=== PATIENT | male | born 1940 | race Caucasian/White ===

== ENCOUNTER 2023-11-06 10:27 | Emergency (ER) | payer MEDICARE, OTHER ==
[~2023-11-06] VITALS: Ht 175.3 cm; Wt 77.3 kg
[~2023-11-06 10:27] MED LIST: ASPIRIN 81M81 MG/TA2 PO; CARDIZEM CD 12120 MG PO; CIPRO 500MG TA500 MG PO; FLAGYL500 MG; HCTZ 25MG TAB25 MG PO; HCTZ12.5TAB PO; MOBIC 7.5MG7.5 MG PO; NORCO 325 MG-51 TAB PO; PHENERGAN25 MG
[2023-11-06 10:37] VITALS: TEMP 99.1
[2023-11-06] MEDS ORDERED: NS 500 ML IV ONE (11:15)
[2023-11-06] MEDS ORDERED: Acetaminophen 500 MG TAB PO ONE (11:15)
[2023-11-06 11:57] LABS: BASO % 0.2 % (0.0-2.0); GRAN # 7.4 K/mm3 (1.4-6.5); GRAN % 82.9 % (42.2-75.2); HEMOGLOBIN 12.8 g/dl (13.5-18.0); LYMPH # 0.5 K/mm3 (1.2-3.4); LYMPH % 5.5 % (20.0-51.0); MEAN CELL VOLUME 92 fl (80.0-100.0); MEAN CORPUSCULAR HEMOGLOBIN 32 pg (27-31); MEAN CORPUSCULAR HGB CONC 35 g/dl (33.0-37.0); MEAN PLATELET VOLUME 9.2 fl (7.4-10.4); MONO % 10.9 % (1.7-9.3); PLATELET COUNT 212 K/mm3 (130-400); RED BLOOD COUNT 3.95 M/mm3 (4.20-5.60); REDCELL DISTRIBUTION WIDTH-CV 13.2 % (11.5-14.5)
[2023-11-06 11:58] LABS: HEMATOCRIT 36.2 % (42.0-52.0)
[2023-11-06 12:11] LABS: ALANINE AMINOTRANSFERASE 35 U/L (0-55); ALKALINE PHOSPHATASE 53 U/L (40-150); ANION GAP 10 mmol/L (7-16); AST,SGOT 41 U/L (5-34); BILIRUBIN,TOTAL 0.4 mg/dL (0.2-1.2); BLOOD UREA NITROGEN 21 mg/dL (8-26); CALCIUM 9.2 mg/dL (8.4-10.2); CHLORIDE 98 mEq/L (98-107); CREATININE, serum 0.99 mg/dL (0.72-1.25); GLUCOSE 107 mg/dL (70-99); POTASSIUM 3.7 mEq/L (3.5-4.5); SODIUM 132 mEq/L (136-145); TOTAL PROTEIN 6.5 g/dl (6.2-8.1)
[2023-11-06 12:17] LABS: TROPONIN-I < 0.010 ng/mL (0.00-0.033)
[2023-11-06 13:49] VITALS: BP 138/102; PULSE 89
== END 2023-11-06 13:55 | disposition home or self-care (01) ==
LOC: COL.ER 10:27
PROVIDERS: Nurse Practitioner
DX: U07.1 COVID-19 (principal); R05.9 Cough, unspecified; R09.81 Nasal congestion; R11.0 Nausea
CPT/HCPCS: J7040